=== PATIENT | female | born 1985 | race Hispanic/Latino ===

== ENCOUNTER 2022-05-03 18:17 | Emergency (ER) | payer OTHER ==
[~2022-05-03] VITALS: Ht 149.9 cm; Wt 66.7 kg
[2022-05-03] MEDS ORDERED: ONDANSETRON 4MG INJ ONE (18:43)
[2022-05-03] MEDS ORDERED: MORPHINE 4 MG SYG ONE (18:44)
[2022-05-03 18:52] LABS: BASOPHILS % (AUTO) 0.3 % (0.0-5.0); EOSINOPHILS % (AUTO) 0.1 % (0.0-8.0); HEMATOCRIT 41.8 % (36-48); LYMPHOCYTES % (AUTO) 24.5 % (21.0-51.0); MEAN CORPUSCULAR HEMOGLOBIN 28.6 pg (27.0-33.0); MEAN CORPUSCULAR HGB CONC 33.5 g/dL (32.0-36.0); MEAN CORPUSCULAR VOLUME 85.3 fL (79-99); MONOCYTES % (AUTO) 5.8 % (3.0-13.0); PLATELET COUNT (AUTO) 345 K/uL (130-400); WHITE BLOOD COUNT (AUTO) 11.8 K/uL (4.8-10.8)
[2022-05-03 18:54] LABS: APPEARANCE,URINE CLOUDY (CLEAR); BILIRUBIN,URINE SMALL (NEGATIVE); COLOR,URINE YELLOW (YELLOW); GLUCOSE, URINE (UA) NEGATIVE (NEGATIVE); KETONES,URINE NEGATIVE (NEGATIVE); LEUKOCYTE ESTERASE ,URINE NEGATIVE (NEGATIVE); NITRATE,URINE NEGATIVE (NEGATIVE); OCCULT BLOOD,URINE LARGE (NEGATIVE); PH,URINE 5.5 (5.0-8.0); PROTEIN,URINE TRACE mg/dL (NEGATIVE); UROBILINOGEN,URINE 0.2 mg/dL (0.2-1.0)
[2022-05-03] MEDS ORDERED: 0.9%NACL 1000ML 1,000 ML IV ONE (19:00)
[2022-05-03] MEDS ORDERED: MORPHINE 4 MG SYG IVP ONE (19:00)
[2022-05-03] MEDS ORDERED: ONDANSETRON 4MG INJ IVP ONE (19:00)
[2022-05-03 19:01] LABS: HCG,QUALITATIVE URINE NEGATIVE (NEGATIVE)
[2022-05-03 19:18] LABS: POTASSIUM 3.1 mmol/L (3.5-5.1)
[2022-05-03 19:25] LABS: BACTERIA,URINE Few /HPF (None Seen); MUCUS,URINE Few LPF (None Seen); RBC,URINE 51-100 /HPF (0-1); SQUAMOUS EPITHELIAL CELL,UR Few /HPF (0-2)
[2022-05-03 19:28] LABS: ALBUMIN 4.3 g/dL (3.5-5.0); TOTAL PROTEIN, SERUM 8.5 g/dL (6.0-8.3)
[2022-05-03] MEDS ORDERED: IOHEXOL 350 MG/ML 100ML INFUS..BTL IV ONE (19:29)
[2022-05-03] MEDS ORDERED: POTASSIUM BICARB/CIT AC 25 MEQ TABLET.EFF PO ONE (20:00)
[2022-05-03] MEDS ORDERED: POTASSIUM BICARB/CIT AC 25 MEQ TABLET.EFF ONE (20:01)
[2022-05-03 20:27] VITALS: BP 110/71
[2022-05-03] MEDS ORDERED: NAPR500T6 PO (21:11)
[2022-05-03] MEDS ORDERED: ONDA4TAB10 PO (21:11)
== END 2022-05-03 21:20 | disposition home or self-care (01) ==
LOC: EDH 18:17
DX: K80.20 Calculus of gallbladder without cholecystitis without obstruction (principal); N20.1 Calculus of ureter
CPT/HCPCS: 99285; 74177; 96374; 76705; 96361; 96375; 80053; 84702; 83690; 85025; 86850; 86900; 86901; 81001; 81025; 36415; J7030; J2405; J2270; Q9967